=== PATIENT | male | born 1945 | race Caucasian/White ===

== ENCOUNTER → 2016-12-28 | Outpatient (REF) | payer OTHER, MEDICARE ==
[2016-12-28 20:05] LABS: AMYLASE 95 U/L (25-115)
== END ==
LOC: M LAB REF 16:22
PROVIDERS: ATTEND Nurse Practitioner Family
DX: R10.31 Right lower quadrant pain (principal)

== ENCOUNTER → 2017-06-10 | Outpatient (REF) | payer OTHER | LOC: M LAB REF 12:49 | PROVIDERS: ATTEND Internal Medicine | DX: R30.0 Dysuria (principal); R35.0 Frequency of micturition ==

== ENCOUNTER → 2018-02-07 | Outpatient (REF) | payer OTHER ==
[2018-02-07 18:56] LABS: VITAMIN B12 LEVEL 648 PG/ML (247-911)
== END ==
LOC: M LAB REF 17:50
DX: R41.3 Other amnesia (principal)
CPT/HCPCS: 82607

== ENCOUNTER 2018-04-13 09:26 | Outpatient (RCR) | payer OTHER | END 2018-04-19 | disposition home or self-care (01) | LOC: M ST 09:26 | DX: R49.0 Dysphonia (principal) | CPT/HCPCS: 92507 ==

== ENCOUNTER 2018-04-26 08:53 | Outpatient (RCR) | payer OTHER | END 2018-05-20 | LOC: M ST 08:53 | DX: R49.0 Dysphonia (principal) | CPT/HCPCS: 92507 ==

== ENCOUNTER → 2018-05-13 | Outpatient (CLI) | payer OTHER ==
[~2018-05-13] MED LIST: ISOVUE-370 76% 100ML VIAL (Q9967) As Ordered
== END ==
LOC: M RAD 09:30
DX: R49.0 Dysphonia (principal)
CPT/HCPCS: Q9967

== ENCOUNTER → 2019-11-23 | Outpatient (REF) | payer MEDICARE ==
[2019-11-23 17:07] LABS: RHEUMATOID FACTOR QUANT < 10.0 IU/ML (<15.0); TOTAL PROTEIN 7.3 GM/DL (6.4-8.2)
[2019-11-23 17:09] LABS: VITAMIN B12 LEVEL 1085 PG/ML
[2019-11-28 10:00] LABS: DRVV SCREEN 39.4 SEC
[2019-11-28 14:17] LABS: ALBUMIN % 61.7 % (55.8-66.1); ALPHA-1-GLOBULIN % 3.6 % (2.9-4.9); ALPHA-1-GLOBULINS 0.26 GM/DL (0.17-0.41); ALPHA-2-GLOBULINS 0.95 GM/DL (0.42-0.99); BETA-1-GLOBULINS 0.41 GM/DL (0.28-0.60); BETA-1-GLOBULINS % 5.6 % (4.7-7.2); BETA-2-GLOBULINS 0.42 GM/DL (0.19-0.55); BETA-2-GLOBULINS % 5.8 % (3.2-6.5); GAMMA GLOBULIN % 10.3 % (11.1-18.8); GAMMA GLOBULINS 0.75 GM/DL (0.65-1.58)
[2019-11-29 14:07] LABS: ANCA-ATYPICAL <1:20 titer (Neg:<1:20); ANTI DS-DNA AB Negative (Negative); ANTINUCLEAR ANTIBODIES DIRECT Negative (Negative); CYTOPLASMIC NEUTROP AB ANCA-C <1:20 titer (Neg:<1:20); PERINUCLEAR AB ANCA-P <1:20 titer (Neg:<1:20); SJOGREN'S ANTI SS-A <0.2 AI (0.0-0.9); SJOGREN'S ANTI SS-B <0.2 AI (0.0-0.9); VITAMIN B1 LEVEL WHOLE BLOOD 146.1 nmol/L (66.5-200.0); VITAMIN B6,PYRIDOXAL PHOSPHATE 15.7 ug/L (5.3-46.7); VITAMIN E(ALPHA TOCOPHEROL) 14.8 mg/L (9.0-29.0); VITAMIN E(GAMMA TOCOPHEROL) 1.5 mg/L (0.5-4.9)
== END ==
LOC: M LAB REF 16:23
PROVIDERS: ATTEND Internal Medicine
DX: R41.3 Other amnesia (principal); G60.9 Hereditary and idiopathic neuropathy, unspecified

== ENCOUNTER → 2021-06-04 | Outpatient (CLI) | payer MEDICARE ==
--- NOTE | 2021-06-05 19:27 | REP ---
INDICATION: CHEST WALL PAIN COMPARISON: None. TECHNIQUE: Frontal view of the chest with multiple views of the right hemithorax. FINDINGS: Frontal view of the chest demonstrates no acute cardiopulmonary process, contusion, effusion, or pneumothorax. Multiple views of the right hemithorax demonstrates no acute rib fracture/injury or pathology. IMPRESSION: No obvious acute right rib fracture or pathology noted. <Electronically signed by Vlad Claire > 06/05/21 [id number]
== END ==
LOC: M ADAMS 10:55
PROVIDERS: ATTEND Internal Medicine
DX: R07.89 Other chest pain (principal)

== ENCOUNTER → 2021-07-10 | Outpatient (CLI) | payer MEDICARE ==
--- NOTE | 2021-07-11 03:48 | REP ---
INDICATION: LT LEG PAIN SWELLING ? DVT COMPARISON: None. TECHNIQUE: Rizzo scale and color Doppler evaluation using linear high frequency transducer. FINDINGS: Ultrasound examination of the left lower extremity deep venous structures from the common femoral vein through the calf/ankle to include the peroneal, and tibial veins demonstrates normal compressibility flow and wave patterns in response to respiration and augmentation. There is no evidence for deep venous thrombosis. Contralateral CFV is patent and normal. IMPRESSION: No evidence for deep venous thrombosis. <Electronically signed by Vlad Claire > 07/11/21 [id number]
== END ==
LOC: M RAD 14:06
PROVIDERS: ATTEND Internal Medicine
DX: M79.605 Pain in left leg (principal); M79.89 Other specified soft tissue disorders

== ENCOUNTER → 2021-08-29 | Outpatient (REF) | payer MEDICARE | LOC: M LAB REF 12:26 | PROVIDERS: ATTEND Internal Medicine | DX: R68.82 Decreased libido (principal); G04.81 Other encephalitis and encephalomyelitis ==

== ENCOUNTER → 2021-09-02 | Outpatient (CLI) | payer MEDICARE ==
--- NOTE | 2021-09-04 14:47 | SLEEPCENT ---
DATE: 09/02/2021 ORDERED BY: Jayda Weaver NP Nocturnal polysomnography was performed for the re-titration of pressure therapy in this patient with obstructive sleep apnea syndrome, currently using CPAP at 15 cm of water pressure. For testing the patient was fit with a [employer]Med Quattro full face mask of large size, 15 cm of water pressure were applied to the circuit, and the lights were extinguished. Eight hours and 36 minutes of data were reviewed. There were 262.5 minutes of sleep identified. Sleep latency was short at 10.5 minutes. REM sleep was not achieved. Sleep architecture shows poor progression consistent with the patient's underlying diagnoses. Periods of wake were noted as well with a resultant reduced sleep efficiency at 51.3. The electrocardiogram shows a sinus rhythm with PVCs. Average heart rate was 60 beats per minute. EEG showed reasonably normal waveforms for wake and sleep. Persistence in respiratory events prompted increases in CPAP pressure. Events were seen until CPAP pressure was increased to 20. Sleep after this point was inconsistent. However, no obstructive events were identified. There was some minor limb activity noted on the limb EMG. Limb movement arousal index was 3.2. IMPRESSION: Obstructive sleep apnea syndrome (G47.33). RECOMMENDATION: Nightly use of pressure therapy 20 cm of water. cc: DANIELLE JAIN MD
== END ==
LOC: M SLEEP 20:00
PROVIDERS: ATTEND Nurse Practitioner Adult Health
DX: G47.33 Obstructive sleep apnea (adult) (pediatric) (principal)

== ENCOUNTER → 2021-09-17 | Outpatient (REF) | payer MEDICARE ==
[2021-09-18 12:08] LABS: TESTOSTERONE FREE (DIRECT) 5.8 pg/mL (6.6-18.1)
== END ==
LOC: M LAB REF 10:53
PROVIDERS: ATTEND Internal Medicine
DX: R68.82 Decreased libido (principal)

== ENCOUNTER → 2021-09-22 | Outpatient (CLI) | payer MEDICARE ==
[~2021-09-22] MED LIST changes: -ISOVUE-370 76% 100ML VIAL (Q9967) As Ordered; +PROHANCE 279.3MG/ML 15ML VIAL ONE; +PROHANCE 279.3MG/ML 5ML VIAL ONE
--- NOTE | 2021-09-22 21:29 | REPVR ---
PROCEDURE INFORMATION: Exam: MR Head Without and With Contrast Exam date and time: 09/22/2021 4:07 PM Age: 76 years old Clinical indication: Parkinsons; Left sided disorders of trigeminal nerve TECHNIQUE: Imaging protocol: MR of the head without and with intravenous contrast. 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 Mild nonspecific T2/FLAIR hyperintensities of the periventricular and deep subcortical white matter, most likely secondary to chronic small vessel ischemic change. No intracranial hemorrhage or extra-axial fluid collection. No evidence of mass effect or midline shift. No restricted diffusion to suggest acute infarct. No abnormal intracranial enhancement. Cerebral ventricles: Prominence of the ventricles and sulci, likely attributed to parenchymal volume loss. Bones/joints: Unremarkable. Paranasal sinuses: Mild mucosal thickening of the paranasal sinuses. Mastoid air cells: No mastoid effusion. Orbital cavity: Unremarkable. Soft tissues: Unremarkable. IMPRESSION: 1. No acute intracranial pathology. 2. Chronic intracranial findings, as above. Electronically signed by: Bhupinder Yeung On 09/22/2021 21:29:13 PM
== END ==
LOC: M PLAIMG 14:41
PROVIDERS: ATTEND Internal Medicine
DX: G50.8 Other disorders of trigeminal nerve (principal); J32.9 Chronic sinusitis, unspecified; Z86.73 Personal history of transient ischemic attack (TIA), and cerebral infarction without residual deficits
CPT/HCPCS: 70553; A9576

== ENCOUNTER → 2021-11-28 | Outpatient (CLI) | payer MEDICARE | LOC: M PLAIMG 15:54 | PROVIDERS: ATTEND Internal Medicine | DX: M54.50 Low back pain, unspecified (principal); M47.816 Spondylosis without myelopathy or radiculopathy, lumbar region; M47.817 Spondylosis without myelopathy or radiculopathy, lumbosacral region ==

== ENCOUNTER → 2021-12-11 | Outpatient (CLI) | payer MEDICARE | LOC: M RAD 11:35 | PROVIDERS: ATTEND Internal Medicine | DX: R33.9 Retention of urine, unspecified (principal); R10.32 Left lower quadrant pain; N32.89 Other specified disorders of bladder ==

== ENCOUNTER → 2024-05-15 | Outpatient (CLI) | payer MEDICARE | LOC: M PLAIMG 12:00 | PROVIDERS: ATTEND Nurse Practitioner Family | DX: M25.572 Pain in left ankle and joints of left foot (principal) ==

== ENCOUNTER → 2025-01-11 | Outpatient (REF) | payer MEDICARE | LOC: M LABDRWAD 17:12 | PROVIDERS: ATTEND Nurse Practitioner Family | DX: Z85.46 Personal history of malignant neoplasm of prostate (principal) ==

== ENCOUNTER → 2025-08-08 | Outpatient (CLI) | payer MEDICARE | LOC: M WUC 12:39 | PROVIDERS: ATTEND Internal Medicine | DX: M54.6 Pain in thoracic spine (principal); R07.89 Other chest pain ==